=== PATIENT | female | born 1980 | race Caucasian/White ===

== ENCOUNTER → 2019-04-21 | Outpatient (CLI) | payer BC ==
--- NOTE | 2019-04-21 14:41 | Diagnostic Imaging Report ---
INDICATION: Hypothyroidism. Thyroid sonography is performed in the routine fashion. There is no prior study for comparison. The right thyroid lobe measures 3.3 x 1.1 x 0.8 cm. The left thyroid lobe measures 4.1 x 0.9 x 0.8 cm. There is no focal thyroid lesion seen. The thyroid lobes are relatively small on both sides. IMPRESSION: Relatively small thyroid gland with no focal nodule. Dictated by: Dictated on workstation # [id number]
== END ==
LOC: RAD 09:24
PROVIDERS: ATTEND Internal Medicine Endocrinology, Diabetes & Metabolism
DX: E03.9 Hypothyroidism, unspecified (principal)
CPT/HCPCS: 76536

== ENCOUNTER 2021-08-13 10:10 | Outpatient (CLI) | payer BC ==
[~2021-08-13] VITALS: Ht 160 cm; Wt 113.6 kg
[2021-08-13 10:14] VITALS: BP 135/95
[2021-08-13] MEDS ORDERED: BAMLANIVIMAB 700 MG/ETESEVIMAB 1,400 MG IN NS IV ONE ×3 (10:30)
[2021-08-13] MEDS ORDERED: ACETAMINOPHEN 500 MG TAB (TYLENOL) PO PRN (10:30)
[2021-08-13] MEDS ORDERED: EPINEPHrine INJECTION 1 MG/ML AMP IM PRN (10:30)
[2021-08-13] MEDS ORDERED: ONDANSETRON 4 MG/2 ML (SDV) Z0FRAN IV PRN (10:30)
[2021-08-13] MEDS ORDERED: diphenhydrAMINE 50 MG/ML INJ (BENADRYL) IV PRN (10:30)
[2021-08-13 11:40] VITALS: BP 125/87
== END 2021-08-13 11:50 ==
LOC: INFUSION 10:10
PROVIDERS: ATTEND Nurse Practitioner
DX: U07.1 COVID-19 (principal)